=== PATIENT | male | born 1990 | race Caucasian/White ===

== ENCOUNTER 2023-08-08 15:34 | Emergency (ER) | payer MEDICAID ==
[~2023-08-08] VITALS: Ht 170.2 cm; Wt 57.0 kg
[2023-08-08 15:38] VITALS: O2SAT 99
[2023-08-08] MEDS ORDERED: AMOX-494 MT (16:35)
[2023-08-08 20:54] VITALS: BP 126/77; PULSE 86; RESP 17; TEMP 98.4
== END 2023-08-08 21:01 | disposition home or self-care (01) ==
LOC: ER 15:34
DX: H66.91 Otitis media, unspecified, right ear (principal); R05.9 Cough, unspecified
CPT/HCPCS: 99281; 99283